=== PATIENT | male | born 1965 ===

== ENCOUNTER 2021-08-01 08:56 | Observation (INO) ==
[~2021-08-01 08:56] MED LIST: Buffered Lidocaine 1% SYRIN 1 ml INTRADERM ONE; Lactated Ringers 1000 ml BAG 1,000 ML IV SCH
[2021-08-01] MEDS ORDERED: ceFAZolin 2 GM PREMIX 2 GM/50 ML BAG ONE (09:03)
[2021-08-01] MEDS ORDERED: Propofol 10 MG/ML 20 ML BTL ONE (09:18)
[2021-08-01] MEDS ORDERED: fentaNYL 250 mcg/5 ml 50 MCG/ML 5 ml VIAL (250 MCG) ONE ×2 (09:18→12:51)
[2021-08-01] MEDS ORDERED: Rocuronium 50 mg VIAL 10 mg/ml 5 ml VIAL (50 mg) ONE (09:18)
[2021-08-01] MEDS ORDERED: Lidocaine 2% PF 5 ML VIAL ONE (09:18)
[2021-08-01] MEDS ORDERED: Naloxone 0.4 mg VIAL 0.4 mg/ml 1 ml VIAL IV PRN (09:37)
[2021-08-01] MEDS ORDERED: HYDROmorphone 1 MG/1 ML SYRINGE IV PRN (09:37)
[2021-08-01] MEDS ORDERED: Prochlorperazine 5 mg/ml 2 ml VIAL (10 mg) IV PRN (09:37)
[2021-08-01] MEDS ORDERED: Sodium Citrate/Citric Acid LIQ 15 ML UDC ONE (09:51)
[2021-08-01] MEDS ORDERED: ceFAZolin VIAL 1 GM in NS 0.9% 50 ML 50 ML IVPB ONE (10:00)
[2021-08-01 10:24] LABS: Rapid COVID-19 Molecular Undetected (Undetected)
[2021-08-01] MEDS ORDERED: Midazolam 5 mg/5 ml VIAL 1 mg/ml 5 ml VIAL (5 mg) ONE (11:07)
[2021-08-01] MEDS ORDERED: EPHEDrine (Pressors) 50 MG/ML VIAL ONE ×2 (11:36→16:23)
[2021-08-01] MEDS ORDERED: Sterile Water for Inj 10 ML ONE (11:45)
[2021-08-01] MEDS ORDERED: Magnesium Hydroxide LIQ 30 ML UDC PO PRN (12:09)
[2021-08-01] MEDS ORDERED: Ondansetron 4 mg VIAL 2 MG/ML 2 ml VIAL IV PRN (12:09)
[2021-08-01] MEDS ORDERED: Ondansetron ODT 4 mg TAB 4 MG TAB PO PRN (12:09)
[2021-08-01] MEDS ORDERED: Lactulose 30 ml UDC PO PRN (12:09)
[2021-08-01] MEDS ORDERED: Ondansetron 4 mg VIAL 2 MG/ML 2 ml VIAL ONE (13:19)
[2021-08-01] MEDS ORDERED: Dexamethasone IV 4 MG/ML VIAL 1 ml VIAL ONE (13:19)
[2021-08-01] MEDS ORDERED: Acetaminophen IV 1 GM/100ML 100 ML IV ONE (13:19)
[2021-08-01] MEDS ORDERED: Sugammadex 500 MG/5 ML 5 ml VIAL IV PUSH ONE (13:49)
[2021-08-01] MEDS ORDERED: ROPIVACAINE 5 MG/ML 30 ML BTL (0.5%) ONE (14:08)
[2021-08-01] MEDS ORDERED: HYDROmorphone 1 MG/1 ML SYRINGE ONE (14:38)
[2021-08-01] MEDS: HYDROmorphone 1 MG/1 ML SYRINGE IV PRN ×5 (14:50→15:29)
[2021-08-01] MEDS ORDERED: Ketamine HCL 50 mg/ml 10 ml VIAL (500 MG) ONE (15:55)
[2021-08-01] MEDS ORDERED: Propofol 0 MG/0 ML BTL ONE (16:28)
[2021-08-01] MEDS ORDERED: Phenylephrine IV 10 MG/ML 1 ml VIAL ONE (16:32)
[2021-08-01] MEDS: Lactated Ringers 1000 ml BAG 1,000 ML IV SCH (18:24)
[2021-08-01] MEDS: ceFAZolin VIAL 1 GM in NS 0.9% 50 ML 50 ML IVPB SCH (19:44)
[2021-08-01] MEDS: Magnesium Hydroxide LIQ 30 ML UDC PO SCH (21:51)
[2021-08-02] MEDS: ceFAZolin VIAL 1 GM in NS 0.9% 50 ML 50 ML IVPB SCH ×2 (03:07→12:45)
[2021-08-02] MEDS: Lactated Ringers 1000 ml BAG 1,000 ML IV SCH (03:09)
[2021-08-02 07:48] LABS: Hematocrit 36 % (42-52); Hemoglobin 11.7 g/dL (14.0-18.0)
[2021-08-02 07:50] LABS: eGFR CKD-EPI 77.7 (>60)
[2021-08-02 09:50] LABS: Mean Platelet Volume 8.7 fL (7.4-10.4); Platelet Count 156 10^3/uL (150-450)
[2021-08-02] MEDS: Vitamin THERAPEUTIC TAB PO SCH (10:33)
[2021-08-02] MEDS: Magnesium Hydroxide LIQ 30 ML UDC PO SCH ×2 (10:34→21:57)
[2021-08-03 07:36] LABS: Hematocrit 33 % (42-52); Platelet Count 160 10^3/uL (150-450)
[2021-08-03 08:22] VITALS: BP 130/83
[2021-08-03] MEDS: Vitamin THERAPEUTIC TAB PO SCH (09:51)
[2021-08-03] MEDS: Magnesium Hydroxide LIQ 30 ML UDC PO SCH (09:53)
== END 2021-08-03 14:30 ==
LOC: INTOOBSV 08:56 → AA 08:56 → SSU 17:12
PROVIDERS: ADMIT Orthopaedic Surgery Adult Reconstructive Orthopaedic Surgery; ATTEND Orthopaedic Surgery Adult Reconstructive Orthopaedic Surgery

== ENCOUNTER 2023-09-17 11:28 | Observation (INO) ==
[2023-09-17] MEDS ORDERED: Metoclopramide 5 MG/ML VIAL (10 mg) IV PRN (11:56)
[2023-09-17] MEDS ORDERED: Ondansetron 4 mg VIAL 2 MG/ML 2 ml VIAL IV PRN ×2 (11:56→13:58)
[2023-09-17] MEDS ORDERED: Naloxone 0.4 mg VIAL 0.4 mg/ml 1 ml VIAL IV PRN (11:56)
[2023-09-17] MEDS ORDERED: NS 0.45% 1000 ml BAG 1,000 ML IV SCH (12:00)
[2023-09-17] MEDS ORDERED: Rocuronium 50 mg VIAL 10 mg/ml 5 ml VIAL (50 mg) ONE (12:10)
[2023-09-17 12:21] LABS: Rapid COVID-19 Molecular Undetected (Undetected)
[2023-09-17] MEDS ORDERED: ceFAZolin 2 GM PREMIX 2 GM/50 ML BAG ONE (13:14)
[2023-09-17] MEDS ORDERED: ROPIVACAINE 5 MG/ML 30 ML BTL (0.5%) ONE ×2 (13:35→13:50)
[2023-09-17] MEDS: Buffered Lidocaine 1% SYRIN 1 ml INTRADERM ONE (13:36)
[2023-09-17] MEDS: Scopolamine 1 mg/72hr PATCH TRANSDERM ONE (13:37)
[2023-09-17] MEDS: Lactated Ringers 1000 ml BAG 1,000 ML IV SCH ×2 (13:37→22:26)
[2023-09-17] MEDS ORDERED: Lactulose 30 ml UDC PO PRN (13:58)
[2023-09-17] MEDS ORDERED: Calcium Carb (TUMS) 500 mg CHEW TAB PO PRN (13:58)
[2023-09-17] MEDS ORDERED: Magnesium Hydroxide LIQ 30 ML UDC PO PRN (13:58)
[2023-09-17] MEDS ORDERED: Morphine 2 MG/ML SYRINGE IV PRN (13:58)
[2023-09-17] MEDS ORDERED: Ondansetron ODT 4 mg TAB 4 MG TAB PO PRN (13:58)
[2023-09-17] MEDS ORDERED: Propofol 10 MG/ML 20 ML BTL ONE ×4 (14:36→17:10)
[2023-09-17] MEDS ORDERED: Lidocaine 2% PF 5 ML VIAL ONE (14:36)
[2023-09-17] MEDS ORDERED: fentaNYL 100 mcg/2 ml 50 MCG/ML VIAL ONE ×2 (14:38→18:20)
[2023-09-17] MEDS ORDERED: Midazolam 2 mg/2 ml VIAL 1 mg/ml 2 ml VIAL (2 mg) ONE (14:38)
[2023-09-17] MEDS ORDERED: Dexamethasone IV 4 MG/ML VIAL 1 ml VIAL ONE (16:04)
[2023-09-17] MEDS ORDERED: Ondansetron 4 mg VIAL 2 MG/ML 2 ml VIAL ONE (16:04)
[2023-09-17] MEDS ORDERED: HYDROmorphone 0.5 MG/0.5 ML SYRINGE ONE ×3 (16:04)
[2023-09-17] MEDS ORDERED: Glycopyrrolate IV 0.2 MG/ML 1 ML VIAL ONE (16:04)
[2023-09-17] MEDS ORDERED: Acetaminophen IV 1 GM/100ML 1,000 MG/100 ML BAG IV ONE (16:04)
[2023-09-17] MEDS: fentaNYL 100 mcg/2 ml 50 MCG/ML VIAL IV PRN (18:24)
[2023-09-17] MEDS: Acetaminophen IV 1 GM/100ML 1,000 MG/100 ML BAG IV ONE (20:38)
[2023-09-17] MEDS: Magnesium Hydroxide LIQ 30 ML UDC PO SCH (22:26)
[2023-09-17] MEDS: ceFAZolin 2 GM in NS PREMIX 2 GM/100 ML BAG IVPB SCH (23:43)
[2023-09-18 06:06] LABS: Hematocrit 36.5 % (38-53); Hemoglobin 12.7 g/dL (13.2-16.3); Mean Platelet Volume 8.4 fL (7.5-11.2); Platelet Count 190 10^3/uL (150-450)
[2023-09-18 06:38] LABS: Calcium 8.8 mg/dL (8.6-10.3); Creatinine, Serum 1.31 mg/dL (0.67-1.17); Potassium 4.1 mmol/L (3.5-5.0); eGFR CKD-EPI 64.3 (>60)
[2023-09-18] MEDS: Vitamin THERAPEUTIC TAB PO SCH (08:08)
[2023-09-18 13:49] VITALS: BP 115/61
== END 2023-09-18 15:49 ==
LOC: INTOOBSV 11:28 → AA 11:28 → SSU 19:56
PROVIDERS: ADMIT Orthopaedic Surgery Adult Reconstructive Orthopaedic Surgery; ATTEND Orthopaedic Surgery Adult Reconstructive Orthopaedic Surgery